=== PATIENT | male | born 1965 | race Caucasian/White ===

== ENCOUNTER 2017-06-17 11:02 | Observation (INO) ==
[~2017-06-17 11:02] MED LIST: LIDOCAINE W/ SODIUM BICARB 0.5 ML SYR ONE; LIDOCAINE W/ SODIUM BICARB 0.5 ML SYR SUBD ONE; Lactated Ringers 1,000 ML PRIMARY IV ONE; ceFAZolin Inj 2gm (Premix) 2 GM/50 ML BAG IV ONE
[2017-06-17] MEDS ORDERED: Lactated Ringers 1,000 ML PRIMARY IV SCH (11:30)
[2017-06-17] MEDS ORDERED: BUPivacaine Inj 0.5% PF (5mg/ml) 10ml vial ONE (11:32)
[2017-06-17 12:10] LABS: BLOOD UREA NITROGEN 16 mg/dL (7-22); BUN/CREATININE RATIO 17.77 (6-20); SERUM ALBUMIN 4.3 g/dL (3.5-4.8)
[2017-06-17] MEDS ORDERED: MIDAZOLAM 5 MG/1 ML ONE (12:19)
[2017-06-17] MEDS ORDERED: MORPHINE SULFATE/PF 10 MG/10 ML AMPULE ONE (12:19)
[2017-06-17] MEDS ORDERED: PROPOFOL 10 MG/1 ML (200 MG/20 ML) VIAL IV ONE ×3 (12:24→15:07)
[2017-06-17] MEDS ORDERED: ceFAZolin Inj 2gm (Premix) 2 GM/50 ML BAG IV ONE (13:00)
[2017-06-17] MEDS ORDERED: Lactated Ringers 1,000 ML PRIMARY IV ONE (13:15)
[2017-06-17] MEDS ORDERED: BUPivacaine Inj 0.25% PF - 10ml vial ONE (14:48)
[2017-06-17] MEDS ORDERED: BUPivacaine Liposome/PF (Exparel) Inj 20ml vial INFIL ONE (14:48)
[2017-06-17] MEDS ORDERED: KETOROLAC 30 MG/1 ML VIAL ONE (15:12)
--- NOTE | 2017-06-17 15:44 | ORTHO.OP ---
Surgery Date: 06/17/17 Preoperative Diagnosis: Lateral tibial plateau fracture left knee Postoperative Diagnosis: Same Procedure: ORIF of left lateral tibial plateau fracture with Stephanie proximal tibial locking plate Surgeon: Connor Dixon MD Formula Maker: WOLF Stewart Anesthesia Provider: Srikanth Singh CRNA Anesthesia Type: Regional Estimated Blood Loss (mL): 15 Fluids: 1500 mL of lactated Ringer's Pathology: None Complications: None Operative Summary: Taken recovery room in stable condition
[2017-06-17] MEDS ORDERED: NORMAL SALINE 10 ML SYRINGE FLUSH IVP PRN ×2 (15:52→16:15)
[2017-06-17] MEDS ORDERED: ONDANSETRON 4 MG/2 ML VIAL IVP PRN ×2 (15:52→16:15)
[2017-06-17] MEDS ORDERED: HYDROmorphone 2 MG/1 ML IVP PRN (15:52)
[2017-06-17] MEDS ORDERED: PROMETHAZINE 25 MG/1 ML VIAL IM PRN (15:52)
--- NOTE | 2017-06-17 15:52 | CRNA.PROGR ---
Anesthesia Recovery Phase I - Post Anesthesia Evaluation Patient's Condition on Arrival in Phase I: Stable Pain Level: 0
--- NOTE | 2017-06-17 15:56 | CRNA.PROGR ---
Anesthesia Time - - Start date: 06/17/17 End date: 06/17/17 - Procedure/Recovery Time Anesthesia : Time In: 12:29 Anesthesia : Time Out: 15:33 Anesthesia : Total Time: 184 - Total Anesthesia Time Total Anesthesia Time (minutes): 184 - Other Weight: 90.718 kg Height: 5 ft 7 in Body Mass Index (BMI): 31.3 Anesthesia Type: Spinal Block
[2017-06-17] MEDS ORDERED: OMEPRAZOLE 20 MG CAPSULE PO PRN (16:31)
--- NOTE | 2017-06-17 16:44 | DI ---
Intraoperative fluoroscopy, 3 images. June 17, 2017 History: Left tibial plateau fracture. Comparison June 12, 2017. Findings: 3 intraoperative radiographs demonstrate placement of lateral tibial fixation plate and scr ews. The tibial plateau fracture is near-normal anatomic alignment. Impression: Tibial plateau ORIF in progress.
[2017-06-17] MEDS: oxyCODONE/APAP 7.5/325 Tab 1 TAB TAB PO PRN (20:49)
[2017-06-17] MEDS: MOXIFLOXACIN HCL OP SCH (23:15)
[2017-06-18] MEDS: oxyCODONE/APAP 7.5/325 Tab 1 TAB TAB PO PRN ×5 (02:23→20:15)
--- NOTE | 2017-06-18 08:08 | ORTHO.PROG ---
Last Taken Vital Signs: Vital Signs - Last Taken Temperature 99.2 F 06/18/17 04:19 Pulse Rate 98 06/18/17 04:19 Respiratory Rate 17 06/18/17 07:00 Blood Pressure 124/87 06/18/17 04:19 Pulse Ox 99 06/18/17 07:00 Subjective: Patient sitting up in bed. Seems to be doing fairly well. Has not been able to void yet. This is probably secondary to the spinal. Would like to try to go home later today if he does well this morning. He had to be straight cathed earlier this morning. Objective: Vitals are stable patient is afebrile. MAXIMUM TEMPERATURE 99. Left lower extremity is clean and dry. Patient is able to extend his big toe and bring his foot to nearly neutral. Assessment: Impression: Postop day 1 from ORIF tibial plateau fracture. Plan: Plan: Is to observe him today. Get him up with physical therapy. Instructed him on Lovenox. We'll give him his first dose of Lovenox today. Probably discharge him later this afternoon if he does well.
[2017-06-18] MEDS: MOXIFLOXACIN HCL OP SCH ×3 (08:35→20:56)
[2017-06-18] MEDS: ENOXAPARIN SODIUM 40 MG/0.4 ML SYRINGE SUBCUT SCH (08:35)
[2017-06-18] MEDS: AmLODIPine Tab 5 MG TABLET PO SCH (08:36)
--- NOTE | 2017-06-18 10:28 | CRNA.PROGR ---
Anesthesia Note - Progress Notes Anesthesia Progress Note: Post OP Anesthesia Note Post OP Anesthesia Note Pt is laying in bed, complaining of mild nausea, has not had much of appetite. He also is having trouble getting urine to flow, i suspect is residual from the SAB. Patient states that his pain is well under control. Current VS are stable. Vital Signs - Last Taken Temperature 97.5 F 06/18/17 05:00 Pulse Rate 71 06/18/17 07:00 Respiratory Rate 18 06/18/17 06:40 Blood Pressure 147/72 06/18/17 05:00 Pulse Ox 93 06/18/17 05:00
--- NOTE | 2017-06-18 10:52 | OPS CRUTCH ---
Diagnosis : Status Post Left Tibial Fracture ORIF Referral Reason: IROM Brace/ICEMAN O: The patient was issued an Iceman and a knee IROM brace and instructed in their proper use and care. P: No further therapy is indicated at this time. MTDD
[2017-06-18] MEDS: KETOROLAC 15 MG/1 ML VIAL IVP PRN ×2 (14:11→20:15)
--- NOTE | 2017-06-18 15:42 | PT.PROG ---
Progress Note Progress Note: S. Patient stated that he is having some pain, however agreed to go for a walk. O. Patient ambulated 100 feet to the stair well where he ascended and descended 4 stairs. Patient ambulated 100 feet back to his room where he was left in bed with alarm and call light. A. Patient tolerated gait and stair training very well. He was able to ambulate with Stand by Guard assist and perform stair training with Contact guard assist. Patient was a little hesitant with descending the stairs however once he began decent he was able to complete the task with little to no assist. P. Continue POC
[2017-06-18] MEDS: CLAVULANATE PO SCH (20:56)
[2017-06-18] MEDS: AMOXICILLIN PO SCH (20:56)
[2017-06-19] MEDS: oxyCODONE/APAP 7.5/325 Tab 1 TAB TAB PO PRN ×4 (01:06→13:45)
[2017-06-19] MEDS: ENOXAPARIN SODIUM 40 MG/0.4 ML SYRINGE SUBCUT SCH (08:19)
[2017-06-19] MEDS: AmLODIPine Tab 5 MG TABLET PO SCH (08:19)
[2017-06-19] MEDS: MOXIFLOXACIN HCL OP SCH (08:22)
[2017-06-19] MEDS: AMOXICILLIN PO SCH (08:23)
[2017-06-19] MEDS: CLAVULANATE PO SCH (08:23)
[2017-06-19 09:00] LABS: Hematocrit [HCT] 37.4 % (42.0-52.0); Hemoglobin [HGB] 12.5 g/dL (14.0-18.0); MEAN CORPUSCULAR HEMOGLOBIN 30.8 PG (27-31); MEAN CORPUSCULAR HGB CONC 33.4 g/dL (33-37); MEAN CORPUSCULAR VOLUME 92.1 FL (80-90); MEAN PLATELET VOLUME 8.7 FL (7.4-12.2); RED BLOOD COUNT 4.06 10^6/uL (4.70-6.10)
[2017-06-19 09:08] LABS: BLOOD UREA NITROGEN 15 mg/dL (7-22); BUN/CREATININE RATIO 18.75 (6-20)
[2017-06-19] MEDS ORDERED: Sodium Chloride 0.9% 500 ML IV ONE (09:29)
[2017-06-19] MEDS: KETOROLAC 15 MG/1 ML VIAL IVP PRN (10:14)
[2017-06-19] MEDS ORDERED: CloNIDine Tab 0.1 MG TABLET PO ONE ×2 (10:22→12:17)
[2017-06-19 12:16] VITALS: TEMP 98.4
--- NOTE | 2017-06-19 12:33 | CONSULT ---
Consult Note - Consult Reason for Consult: PostOp Consulation : Ortho Requesting Physician: tobin Primary Care Provider: JAIDA FOREMAN HPI - History of Present Illness History of Present Illness: This very nice 51-year-old gentleman with past medical history significant for hypertension I was consulted by Dr. Dixon because of tachycardia and elevated blood pressure. Patient denies chest pain nausea vomiting his labs look okay he is on Norvasc 10 mg. Past Medical History Medical History: Hypertension Tobacco Use: Current Some Day Smoker Do you dip or chew tobacco: No In the Past 12 Months, Have Used or Abuse Any of the Following Substance: None Review of Systems - Review of Systems All Systems: Reviewed & No Additional Complaints Except as Stated - Respiratory Respiratory: DENIES: Negative System Review, Cough, Sputum, Dyspnea At Rest, Dyspnea with Exertion, Pleuritic Pain, Hemoptysis, Wheezing, Other, See HPI - Cardiovascular Cardiovascular: DENIES: Negative System Review, Chest Pain, Edema, Syncope, Palpitations, Orthopnea, Paroxysmal Nocturnal Dyspnea, Other, See HPI - Gastrointestinal Gastrointestinal / Abdominal: DENIES: Negative System Review, Nausea, Vomiting, Diarrhea, Constipation, Abdominal Pain, Bloody Stool, Poor Appetite, Heartburn, Regurgitation, Bloating, Lactose Intolerance, Melena, Bright Red Blood per Rectum, Other, See HPI Medication / Allergies Home Medications: Home Medications Medication Instructions Recorded Confirmed Type amlodipine 5 mg tablet 5 mg PO QDAY tab 06/13/17 06/17/17 History hydrocodone 5 mg-acetaminophen 325 1 tab PO .q8 tab 06/13/17 06/17/17 History mg tablet ibuprofen 800 mg tablet 800 mg PO TID 06/13/17 06/17/17 History Amoxicillin/Potassium Clav 1 ea PO BID 06/17/17 06/17/17 History [Augmentin 875-125 Tablet] Aspirin 325 mg PO DAILY 06/17/17 06/17/17 History Moxifloxacin HCl [Vigamox] 3 ml OP TID 06/17/17 06/17/17 History Omeprazole Magnesium [Prilosec Otc] 1 tab PO PRN 06/17/17 06/17/17 History Allergies/Adverse Reactions: Allergies 3 Allergy/AdvReac Type Severity Reaction Status Date / Time No Known Allergies Allergy Verified 06/17/17 16:27 Exam - Vitals Vital Signs: Vital Signs Temperature 98.4 F Temperature Source Oral Pulse Rate [Apical] 94 Pulse Rate [Pulse Oximeter] 92 Pulse Rate 73 Respiratory Rate 14 Blood Pressure [Right Arm] 142/86 Blood Pressure 127/87 Pulse Ox 94 Oxygen Flow Rate 0.5 Oxygen Delivery Method Room Air Height 5 ft 7 in Weight 212 lb 9.6 oz - General General Appearance: No Acute Distress, Cooperative - Head Head Exam: Normal Inspection, Normocephalic, Atraumatic - Respiratory Respiratory Exam: POSITIVE: Clear to Auscultation - Bilaterally, Breathing Non Labored, Normal To Percussion, Normal to Percussion and Palpation - Cardiovascular Cardiovascular Exam: POSITIVE: RRR, No Murmur, No Clicks, No Gallops, No Rubs, PMI Non-Displaced - GI/Abdominal GI/Abdominal Exam: POSITIVE: Normal Bowel Sounds, Non Tender, Non Distended, Soft, No Masses, No Hepatomegaly, No Splenomegaly, No Organomegaly Results - Labs CBC and BMP: 06/19/17 08:55 06/19/17 08:55 Assessment and Plan - Patient Problems (1) Hypertension Current Visit: Yes Status: Acute Comment: Patient is status post the tibial plateau fracture repair on the left postop day 1 he is definitely and had anergic state plus she's been receiving Toradol which definitely can increase the blood pressure. I will give him 0.1 a clonidine we rechecked his blood pressure the 40 minutes later it is improved as well as his tachycardia at 94 bpm down from 110 he is stable and okay to go home he will follow-up with his primary care physician for more blood pressure checks. I believe that once he stops the NSAIDs his blood pressure 1 improve I counseled him on smoking cessation as well and also once the pain subsides this will also have an improvement on his tachycardia. Code(s): I10 - Essential (primary) hypertension (2) Tachycardia with heart rate 100-120 beats per minute Current Visit: Yes Status: Acute Comment: See above Code(s): R00.0 - Tachycardia, unspecified
--- NOTE | 2017-06-19 12:58 | ORTHO.PROG ---
Last Taken Vital Signs: Vital Signs - Last Taken Temperature 98.4 F 06/19/17 12:15 Pulse Rate 92 06/19/17 12:15 Respiratory Rate 14 06/19/17 12:15 Blood Pressure 142/86 06/19/17 12:15 Pulse Ox 94 06/19/17 12:15 Subjective: Patient is doing better than when I saw him earlier. He was having some hypertension and tachycardia earlier. I asked Dr. Hatch to see the patient. He consulted and felt like his symptoms were largely due to the Toradol that he had received earlier. The patient does have a history of hypertension. Admittedly it is not as well-controlled as he would like. Patient was given 2 doses of clonidine as well as a 500 mL bolus of normal saline. He is doing much better now. His vitals have improved and he wants to go home. Not complaining of much pain. No shortness of breath or chest pain. Objective: Vitals are stable currently. Patient is afebrile. Heart rate has come down and his blood pressure has normalized. Left lower extremity shows the ability to extend his foot and big toe. A little bit sore at the endrange at the peroneal nerve seems to be working. His dressing is clean and dry. Brace is intact. Assessment: Impression: Postop day 2 status post ORIF for lateral tibial plateau fracture left. Plan: Is to follow up with somebody in my office next week as I will be out of town. They will do a wound check and get him fitted for the hinged knee brace and probably start him out at about 0-50. We will keep him nonweightbearing for the next 7-8 weeks. I would like to see him back in my office in about 2 weeks. He will be sent home with Percocet for pain and Lovenox 40 mg daily for DVT prophylaxis probably for the next 2 weeks.
[2017-06-19 14:53] VITALS: BP 136/82; RESP 16; O2SAT 93
== END 2017-06-19 13:46 | disposition home or self-care (01) ==
LOC: MED/SURG 11:02 → OR 11:02
PROVIDERS: ADMIT Orthopaedic Surgery; ATTEND Orthopaedic Surgery